=== PATIENT | female | born 1990 | race African-American/Black ===

== ENCOUNTER 2019-01-28 11:30 | Emergency (ER) | payer OTHER ==
[~2019-01-28] VITALS: Ht 162.6 cm; Wt 79.4 kg
[~2019-01-28 11:30] MED LIST: DEPO-PROVE150 MG/1 M; IBUPROFEN 800800 MG PO
[2019-01-28 14:13] VITALS: BP 96/60
== END 2019-01-28 14:15 | disposition home or self-care (01) ==
LOC: ER 11:30
DX: R51 Headache (principal); R42 Dizziness and giddiness; Z88.6 Allergy status to analgesic agent